=== PATIENT | male | born 1985 | race Caucasian/White ===

== ENCOUNTER 2024-01-01 15:45 | Outpatient (RCR) | payer OTHER ==
[~2024-01-01 15:45] MED LIST: AMOXICILLIN 8751 TAB PO; NO HOME MEDICATIONS
== END 2024-01-09 | disposition home or self-care (01) ==
LOC: WSOT
DX: S62.314D Displaced fracture of base of fourth metacarpal bone, right hand, subsequent encounter for fracture with routine healing (principal); S62.334D Displaced fracture of neck of fourth metacarpal bone, right hand, subsequent encounter for fracture with routine healing; X58.XXXD Exposure to other specified factors, subsequent encounter; Z98.890 Other specified postprocedural states